=== PATIENT | female | born 1965 | race Caucasian/White ===

== ENCOUNTER 2021-09-21 07:26 | Day surgery (SDC) | payer OTHER, SELFPAY ==
[~2021-09-21] VITALS: Ht 165.1 cm; Wt 81.6 kg
[2021-09-21] MEDS ORDERED: fentaNYL citrate 0.05 MG/ML VIAL ONE (08:39)
[2021-09-21] MEDS ORDERED: MIDAZOLAM 5 MG/5 ML VIAL ONE (08:40)
[2021-09-21] MEDS ORDERED: diphenhydrAMINE 50 MG/ML VIAL ONE (08:51)
[2021-09-21] MEDS ORDERED: fentaNYL citrate 0.05 MG/ML VIAL IVP ONE (16:25)
[2021-09-21] MEDS ORDERED: MIDAZOLAM 2 MG/2 ML VIAL IVP ONE (16:25)
== END 2021-09-21 10:17 | disposition home or self-care (01) ==
LOC: MDS 07:26 → MMU 07:27 → MDS 10:17
PROVIDERS: ATTEND Internal Medicine Gastroenterology
DX: R10.13 Epigastric pain (principal); K31.7 Polyp of stomach and duodenum; K59.00 Constipation, unspecified; I10 Essential (primary) hypertension; J45.909 Unspecified asthma, uncomplicated; K44.9 Diaphragmatic hernia without obstruction or gangrene; Z79.899 Other long term (current) drug therapy; Z20.822 Contact with and (suspected) exposure to COVID-19
CPT/HCPCS: 43239; 87426; J2250; J3010; J1200